=== PATIENT | male | born 1945 | race Caucasian/White ===

== ENCOUNTER 2018-08-27 00:46 | Emergency (ER) | payer MEDICARE, BC ==
[2018-08-27] MEDS ORDERED: Sodium Chloride 0.9% 10 ML Syringe FLUSH PRN (01:10)
[2018-08-27] MEDS ORDERED: fentaNYL 100 MCG/2 ML SDV IVPUSH ONE (01:11)
--- NOTE | 2018-08-27 01:14 | EDM.PDOC ---
ED HPI GENERAL MEDICAL PROBLEM - General Chief Complaint: Gastrointestinal Problem Stated Complaint: FLU LIKE SYMPTOMS Time Seen by Provider: 08/27/18 01:07 Source of Information: Reports: Patient, RN Notes Reviewed History Limitations: Reports: No Limitations - History of Present Illness INITIAL COMMENTS - FREE TEXT/NARRATIVE: 72-year-old gentleman presents emergency department day sudden onset abdominal pain, he states it's mainly in his right upper quadrant sudden onset of sweatiness and vomiting Abdominal Pain Score (Numeric/FACES): 5 - Related Data Allergies Allergy/AdvReac Type Severity Reaction Status Date / Time No Known Allergies Allergy Verified 08/27/18 01:25 Home Meds: Home Meds Losartan [Cozaar] 100 mg PO DAILY 08/27/18 [History] Past Medical History Cardiovascular History: Reports: Hypertension Social & Family History - Tobacco Use Smoking Status *Q: Never Smoker ED ROS GENERAL - Review of Systems Review Of Systems: See Below Constitutional: Reports: Diaphoresis. Denies: Fever, Chills HEENT: Reports: No Symptoms Respiratory: Reports: No Symptoms Cardiovascular: Reports: No Symptoms GI/Abdominal: Reports: Abdominal Pain, Flatus, Nausea, Vomiting : Reports: No Symptoms Musculoskeletal: Reports: No Symptoms Skin: Reports: No Symptoms Neurological: Reports: No Symptoms ED EXAM, GI/ABD - Physical Exam Exam: See Below Exam Limited By: No Limitations General Appearance: Alert, Mild Distress Respiratory/Chest: No Respiratory Distress, Lungs Clear, Normal Breath Sounds, No Accessory Muscle Use Cardiovascular: Regular Rate, Rhythm, No Murmur GI/Abdominal Exam: Normal Bowel Sounds, Soft, Tender (Right upper quadrant). No : Guarding, Rigid Course - Vital Signs Last Recorded V/S: Last Vital Signs Temp 96.8 F 08/27/18 02:27 Pulse 71 08/27/18 02:27 Resp 16 08/27/18 02:27 BP 123/50 L 08/27/18 02:27 Pulse Ox 97 08/27/18 02:27 - Orders/Labs/Meds Orders: Active Orders 24 hr Category Date Time Status Peripheral IV Care [RC] . DIRECTED Care 08/27/18 01:10 Active Lactated Ringers [Ringers, Lactated] 1,000 ml Med 08/27/18 01:15 Active IV ASDIRECTED Sodium Chloride 0.9% [Saline Flush] Med 08/27/18 01:10 Active 10 ml FLUSH ASDIRECTED PRN Peripheral IV Insertion Adult [OM.PC] Urgent Oth 08/27/18 01:10 Ordered Medication Orders Lactated Ringer's (Ringers, Lactated) 1,000 mls @ 999 mls/hr IV ASDIRECTED YONATHAN Last Admin: 08/27/18 01:26 Dose: 999 mls/hr Sodium Chloride (Saline Flush) 10 ml FLUSH ASDIRECTED PRN PRN Reason: Keep Vein Open Last Admin: 08/27/18 01:25 Dose: 10 ml Labs: Laboratory Tests 08/27/18 08/27/18 08/27/18 Range/Units 01:15 01:15 02:27 WBC 11.6 H (4.5-11.0) K/uL RBC 5.28 (4.30-5.90) M/uL Hgb 15.5 H (12.0-15.0) g/dL Hct 45.6 (40.0-54.0) % MCV 86 (80-98) fL MCH 29 (27-31) pg MCHC 34 (32-36) % Plt Count 250 (150-400) K/uL Neut % (Auto) 82 H (36-66) % Lymph % (Auto) 12 L (24-44) % [place] % (Auto) 5 (2-6) % Eos % (Auto) 1 L (2-4) % Baso % (Auto) 0 (0-1) % Sodium 140 (140-148) mmol/L Potassium 4.9 (3.6-5.2) mmol/L Chloride 107 (100-108) mmol/L Carbon Dioxide 22 (21-32) mmol/L Anion Gap 11.1 (5.0-14.0) mmol/L BUN 32 H (7-18) mg/dL Creatinine 1.9 H (0.8-1.3) mg/dL Est Cr Clr Drug Dosing 36.82 mL/min Estimated GFR (MDRD) 35 L (>60) Glucose 189 H (74-106) mg/dL Lactic Acid (0.4-2.0) mmol/L Calcium 9.1 (8.5-10.1) mg/dL Total Bilirubin 0.5 (0.2-1.0) mg/dL AST 19 (15-37) U/L ALT 40 (12-78) U/L Alkaline Phosphatase 55 (46-116) U/L Troponin I < 0.017 (0.000-0.056) ng/mL Total Protein 7.0 (6.4-8.2) g/dL Albumin 3.9 (3.4-5.0) g/dL Globulin 3.1 (2.3-3.5) g/dL Albumin/Globulin Ratio 1.3 (1.2-2.2) Lipase 145 (73-393) U/L Urine Color Yellow Urine Appearance Clear Urine pH 1.0 L (4.5-8.0) Ur Specific [place] 1.005 L (1.008-1.030) Urine Protein Trace (NEGATIVE) mg/dL Urine Glucose (UA) 50 H (NEGATIVE) mg/dL Urine Ketones Negative (NEGATIVE) mg/dL Urine Occult Blood Negative (NEGATIVE) Urine Nitrite Negative (NEGAITVE) Urine Bilirubin Negative (NEGATIVE) Urine Urobilinogen Normal (NORMAL) mg/dL Ur Leukocyte Esterase Negative (NEGATIVE) Urine RBC 0-5 (0-5) Urine WBC 0-5 (0-5) Ur Epithelial Cells Few Amorphous Sediment Not seen Urine Bacteria Rare Urine Mucus Not seen 08/27/18 08/27/18 Range/Units 02:41 03:45 WBC (4.5-11.0) K/uL RBC (4.30-5.90) M/uL Hgb (12.0-15.0) g/dL Hct (40.0-54.0) % MCV (80-98) fL MCH (27-31) pg MCHC (32-36) % Plt Count (150-400) K/uL Neut % (Auto) (36-66) % Lymph % (Auto) (24-44) % [place] % (Auto) (2-6) % Eos % (Auto) (2-4) % Baso % (Auto) (0-1) % Sodium (140-148) mmol/L Potassium (3.6-5.2) mmol/L Chloride (100-108) mmol/L Carbon Dioxide (21-32) mmol/L Anion Gap (5.0-14.0) mmol/L BUN (7-18) mg/dL Creatinine (0.8-1.3) mg/dL Est Cr Clr Drug Dosing mL/min Estimated GFR (MDRD) (>60) Glucose (74-106) mg/dL Lactic Acid 1.4 (0.4-2.0) mmol/L Calcium (8.5-10.1) mg/dL Total Bilirubin (0.2-1.0) mg/dL AST (15-37) U/L ALT (12-78) U/L Alkaline Phosphatase (46-116) U/L Troponin I < 0.017 (0.000-0.056) ng/mL Total Protein (6.4-8.2) g/dL Albumin (3.4-5.0) g/dL Globulin (2.3-3.5) g/dL Albumin/Globulin Ratio (1.2-2.2) Lipase (73-393) U/L Urine Color Urine Appearance Urine pH (4.5-8.0) Ur Specific [place] (1.008-1.030) Urine Protein (NEGATIVE) mg/dL Urine Glucose (UA) (NEGATIVE) mg/dL Urine Ketones (NEGATIVE) mg/dL Urine Occult Blood (NEGATIVE) Urine Nitrite (NEGAITVE) Urine Bilirubin (NEGATIVE) Urine Urobilinogen (NORMAL) mg/dL Ur Leukocyte Esterase (NEGATIVE) Urine RBC (0-5) Urine WBC (0-5) Ur Epithelial Cells Amorphous Sediment Urine Bacteria Urine Mucus Meds: Medications Generic Name Dose Route Start Last Admin Trade Name Freq PRN Reason Stop Dose Admin Lactated Ringer's 1,000 mls @ 999 mls/hr 08/27/18 01:15 08/27/18 01:26 Ringers, Lactated IV 999 mls/hr ASDIRECTED YONATHAN Administration Sodium Chloride 10 ml 08/27/18 01:10 08/27/18 01:25 Saline Flush FLUSH 10 ml ASDIRECTED PRN Administration Keep Vein Open Discontinued Medications Generic Name Dose Route Start Last Admin Trade Name Freq PRN Reason Stop Dose Admin Fentanyl 50 mcg 08/27/18 01:11 08/27/18 01:29 Sublimaze IVPUSH 08/27/18 01:12 50 mcg ONETIME ONE Administration Lorazepam 1 mg 08/27/18 03:14 08/27/18 03:50 Ativan IVPUSH 08/27/18 03:15 1 mg ONETIME ONE Administration Ondansetron HCl 4 mg 08/27/18 01:11 08/27/18 01:33 Zofran IVPUSH 08/27/18 01:12 4 mg ONETIME ONE Administration Departure - Departure Time of Disposition: 04:49 Disposition: Home, Self-Care 01 Condition: Fair Clinical Impression: Gastroenteritis - Discharge Information Referrals: Kash Graham Sr, MD [Primary Care Provider] - Forms: ED Department Discharge Additional Instructions: Continue to push fluids, follow-up with Dr. Graham in 2-3 days if no improvement also your provided a copy of your CAT scan which shows the questionable area in the pancreas recommend discussed this with Dr. Graham - My Orders Last 24 Hours: My Active Orders 08/27/18 01:10 Peripheral IV Care [RC] . DIRECTED Sodium Chloride 0.9% [Saline Flush] 10 ml FLUSH ASDIRECTED PRN Peripheral IV Insertion Adult [OM.PC] Urgent 08/27/18 01:15 Lactated Ringers [Ringers, Lactated] 1,000 ml IV ASDIRECTED - Assessment/Plan Last 24 Hours: My Active Orders 08/27/18 01:10 Peripheral IV Care [RC] . DIRECTED Sodium Chloride 0.9% [Saline Flush] 10 ml FLUSH ASDIRECTED PRN Peripheral IV Insertion Adult [OM.PC] Urgent 08/27/18 01:15 Lactated Ringers [Ringers, Lactated] 1,000 ml IV ASDIRECTED Plan: Assessment Acuity = acute Site and laterality = gastroenteritis Etiology = unclear etiology Manifestations = nausea vomiting now resolved Location of injury = Home Lab values = CBC unremarkable creatinine elevated 1.9 consistent with chronic renal failure stage G IIIB, urinalysis unremarkable CT scan of the abdomen shows no acute process however there is a questionable area in the tail the pancreas recommend MRI follow-up Plan I did review lab work with him as well as CT scan results he feels significantly better after fluids and antiemetics plan is discharge home follow- up primary care 2 to 3 days if no improvement This note was dictated using [employer] voice recognition software please call with any questions on syntax or grammar.
[2018-08-27] MEDS ORDERED: Lactated Ringers 1,000 ML IV SCH (01:15)
[2018-08-27] MEDS: Ondansetron 4 MG/2 ML SDV IVPUSH ONE ×2 (01:28→01:33)
--- NOTE | 2018-08-27 02:50 | CRLCT ---
INDICATION: Right upper quadrant pain TECHNIQUE: CT Abdomen and pelvis without i.v. contrast. Coronal and sagittal reformats were obtained. COMPARISON: None FINDINGS: Lower chest: Unremarkable. Liver: Unremarkable. Spleen: Unremarkable. Pancreas: There is an exophytic low-density lesion in the pancreatic tail measuring 1.5 cm. Gallbladder: Minimal layering densities are present near the gallbladder neck which may be due to sludge or noncalcified gallstones. Compression Kidney: There are low-density lesions in both kidneys measuring up to 7 cm. These are incompletely characterized without the use of intravenous contrast. Adrenal: Unremarkable. Bowel: Mild sigmoid diverticulosis is seen. The appendix is normal in appearance and size. Vascular: Unremarkable. Lymph: Unremarkable. Peritoneum: Unremarkable. No pneumoperitoneum is seen. No significant ascites is noted. Pelvis: Moderate diffuse bladder wall thickening is noted. Moderate enlargement of the prostate gland is noted. Soft tissue: Unremarkable. Bone: Unremarkable for age. IMPRESSIONS: 1. Moderate diffuse bladder wall thickening is noted. This may be due to chronic bladder outlet obstruction, urinary tract infection, or cystitis. 2. There is an exophytic low-density lesion in the pancreatic tail measuring 1.5 cm. Assessment without patient pancreatic MRI recommended. 3. Moderate enlargement of the prostate gland is noted. Correlation with physical examination and PSA levels are recommended. Dictated by David Brantley MD @ 08/27/2018 2:47:58 AM Please note that all CT scans at this facility use dose modulation, iterative reconstruction, and/or weight-based dosing when appropriate to reduce radiation dose to as low as reasonably achievable. Dictated by: David Brantley MD @ 08/27/2018 02:48:03 (Electronically Signed)
[2018-08-27] MEDS ORDERED: LORazepam 2 MG/ML SDV IVPUSH ONE (03:14)
== END 2018-08-27 05:09 | disposition home or self-care (01) ==
LOC: JP.ED 00:46
DX: K52.9 Noninfective gastroenteritis and colitis, unspecified (principal); I10 Essential (primary) hypertension; Z79.899 Other long term (current) drug therapy
CPT/HCPCS: 36415; 74176; 80053; 81001; 83605; 83690; 84484; 85025; 96361; 96374; 96375; 99284; J2060; J2405; J3010; J7120